=== PATIENT | male | born 1950 | race Caucasian/White ===

== ENCOUNTER 2019-06-27 05:15 | Inpatient (IN) | payer OTHER ==
[2019-06-27 05:22] VITALS: BMI 18.2
--- NOTE | 2019-06-27 05:40 | PDOC ---
Attending Attestation - Resident Resident Name: Tom Loredo - ED Attending Attestation I have performed the following: I have examined & evaluated the patient, The case was reviewed & discussed with the resident, I agree w/resident's findings & plan - HPI HPI: 06/27/19 06:19 see resident hpi - Physicial Exam PE: 06/27/19 06:19 agree with resident exam - Medical Decision Making 06/27/19 06:19 68-year-old male who does not pursue outpatient primary medical care with left- sided chest pain after eating Chest x-ray, EKG, labs We will plan to admit to medical service for at minimum telemetry observation
--- NOTE | 2019-06-27 05:44 | PDOC ---
History of Present Illness - General Chief Complaint: Chest Pain Stated Complaint: CHEST PAIN Time Seen by Provider: 06/27/19 05:24 - History of Present Illness Initial Comments: 06/27/19 05:42 68 yo M who does not see doctors, p/w chest pain. Patient reports that he was at a restaurant eating this morning when he experienced L sided chest pain, associated with SOB and nausea w/o vomiting. Someone at the restaurant called the ambulance for him. Patient says that he has had this pain intermittently for weeks. Reports that the pain is not currently there. Reports that he drinks approximately 3 beers daily, but "I drink more in the summer months". Further states "I'm not an alcoholic, I can stop anytime I want ". About 1ppd smoker since 15 years old. States that in the ambulance, he saw "beautiful children, they were so beautiful ". Currently complains that his back hurts and his legs are tingling. Past History - Past Medical History Allergies/Adverse Reactions: Allergies Allergy/AdvReac Type Severity Reaction Status Date / Time No Known Allergies Allergy Verified 06/27/19 05:20 COPD: No HTN: No (hypotension) - Psycho Social/Smoking Cessation Hx Smoking History: Unknown if ever smoked Review of Systems - Review of Systems Comments:: 06/27/19 06:15 GENERAL/CONSTITUTIONAL: No fever or chills. No weakness. HEAD, EYES, EARS, NOSE AND THROAT: No change in vision. No ear pain or discharge. No sore throat. CARDIOVASCULAR: Chest pain w/ shortness of breath, resolved. RESPIRATORY: Cough. No wheezing, or hemoptysis. GASTROINTESTINAL: No nausea, vomiting, diarrhea or constipation. GENITOURINARY: No dysuria, frequency, or change in urination. MUSCULOSKELETAL: No joint or muscle swelling or pain. No neck or back pain. SKIN: No rash NEUROLOGIC: No headache, vertigo, loss of consciousness, or change in strength/ sensation. ENDOCRINE: No increased thirst. No abnormal weight change. HEMATOLOGIC/LYMPHATIC: No anemia, easy bleeding, or history of blood clots. ALLERGIC/IMMUNOLOGIC: No hives or skin allergy *Physical Exam - Vital Signs Last Vital Signs Temp Pulse Resp BP Pulse Ox 98.5 F 81 94 H 101/62 99 06/27/19 05:20 06/27/19 05:20 06/27/19 05:20 06/27/19 05:20 06/27/19 05:20 - Physical Exam 06/27/19 06:14 Gen: unkempt, malodorous, undernourished, appears clinically intoxicated Neuro: AAOX4, CN II-XII intact, FTN intact, EOMI, PERRLA, 5/5 strength, SILT HEENT: atraumatic, normocephalic, dry mucous membranes Neck: trachea midline, supple CV: regular rate, regular rhythm, no murmurs, rubs, or gallops Pulm: CTA b/l, no wheezing Abd: soft, non-distended, non-tender MSK: full ROM, intact pulses Extr: no edema, no deformities Skin: warm, dry ED Treatment Course - LABORATORY CBC & Chemistry Diagram: 06/27/19 05:45 06/27/19 05:45 - RADIOLOGY Radiology Studies Ordered: Category Date Time Status CXRPORT [CHEST X-RAY PORTABLE*] [RAD] Stat Radiology 06/27/19 05:36 Ordered Medical Decision Making - Medical Decision Making 06/27/19 05:41 68 yo M who does not see doctors, drinks 3 beers daily, smoker, p/w CP. - CBC, CMP - EKG, trop - CXR - u tox, UA/UC - reassess PE low risk considering not tachycardic, not hypoxemic, no SOB. 06/27/19 06:30 EKG normal sinus at 91 bpm, left anterior fascicular block. Do not have old EKG , but concern for ischemic change. 06/27/19 07:09 Patient signed out to Dr. ADAME. Discharge - Discharge Information Problems reviewed: Yes Clinical Impression/Diagnosis: Failure to thrive, COPD suggested by initial evaluation - Follow up/Referral - Patient Discharge Instructions - Post Discharge Activity
[2019-06-27 06:36] LABS: EPI CELLS 0.3 /HPF (0-5/HPF); HYALINE CASTS 1 /lpf (0-8); PH,URINE 5.5 (5.0-8.0); URINE APPEARANCE CLEAR; URINE BILIRUBIN NEGATIVE (NEGATIVE); URINE COLOR YELLOW; URINE GLUCOSE (UA) 2+ (NEGATIVE); URINE KETONE NEGATIVE (NEGATIVE); URINE LEUK ESTERASE NEGATIVE (NEGATIVE); URINE NITRITE NEGATIVE (NEGATIVE); URINE PROTEIN NEGATIVE (NEGATIVE); URINE RBC 1 /hpf (0-4); URINE UROBILINOGEN 0.2 mg/dL (0.2-1.0); URINE WBC 0 /hpf (0-5)
[2019-06-27 06:37] LABS: COCAINE, UR NEGATIVE ng/ml (CUTOFF=300); METHADONE, UR NEGATIVE ng/ml (CUTOFF=300); OPIATES, URI NEGATIVE ng/ml (CUTOFF=300); PHENCYCLIDINE,URINE NEGATIVE ng/ml (CUTOFF=25); URINE AMPHETAMINES NEGATIVE ng/ml (CUTOFF=500); URINE BARBITURATES NEGATIVE ng/ml (CUTOFF=200); URINE BENZODIAZEPINES NEGATIVE ng/ml (CUTOFF=200)
[2019-06-27 06:50] LABS: BASO % 0.9 % (0-2.0); EOS % 2.4 % (0-4.5); HEMATOCRIT 35.2 % (35.4-49); HEMOGLOBIN 11.9 GM/dL (11.7-16.9); LYMPH % 14.6 % (8-40); MCH 31.8 pg (25.7-33.7); MCHC 33.9 g/dl (32.0-35.9); MEAN CELL VOLUME 93.7 fl (80-96); MEAN PLT VOLUME 7.8 fl (7.5-11.1); MONO % 6.8 % (3.8-10.2); NEUT % 75.3 % (42.8-82.8); PLATELET COUNT 253 K/MM3 (134-434); RBC 3.76 M/mm3 (4.00-5.60); RDW 13.1 % (11.9-15.9); WHITE BLOOD COUNT 8.5 K/mm3 (4.0-10.0)
[2019-06-27 07:06] LABS: ALBUMIN 3.1 g/dl (3.4-5.0); BILIRUBIN,TOTAL 0.2 mg/dL (0.2-1); BLOOD UREA NITROGEN 12.4 mg/dL (7-18); CALCIUM 8.5 mg/dL (8.5-10.1); CREATININE 0.6 mg/dL (0.55-1.3); POTASSIUM 3.8 mmol/L (3.5-5.1); TOT PROT 7.3 g/dl (6.4-8.2)
--- NOTE | 2019-06-27 07:16 | PDOC ---
*Physical Exam - Vital Signs Last Vital Signs Temp Pulse Resp BP Pulse Ox 98.5 F 81 94 H 101/62 99 06/27/19 05:20 06/27/19 05:20 06/27/19 05:20 06/27/19 05:20 06/27/19 05:20 - Physical Exam General Appearance: Yes: Nourished, Appropriately Dressed, Disheveled, Other ( strong scent of tobacco). No: Alcohol on Breath HEENT: positive: EOMI, JANES, Normal Voice, Symmetrical. negative: Scleral Icterus (R), Scleral Icterus (L) Neck: positive: Supple. negative: Tender, Lymphadenopathy (R), Lymphadenopathy (L) Respiratory/Chest: positive: Lungs Clear, Normal Breath Sounds. negative: Chest Tender, Respiratory Distress, Accessory Muscle Use, Crackles, Rales, Rhonchi, Stridor, Wheezing Cardiovascular: positive: Regular Rhythm, Regular Rate Gastrointestinal/Abdominal: positive: Normal Bowel Sounds, Flat, Soft. negative : Tender, Organomegaly, Pulsatile Mass, Guarding, Rebound, Hernia Musculoskeletal: positive: Normal Inspection. negative: CVA Tenderness Extremity: positive: Normal Capillary Refill, Normal Inspection, Normal Range of Motion, Tender (tender to LT, bilateral LE feet to knees, no evidence of swelling or pedal edema) Integumentary: positive: Normal Color, Dry, Warm Neurologic: positive: Fully Oriented (patient provides correct name, , location, and current President. Denies AV hallucinations, no evidence of improper logic or speech patterns), Alert, Normal Mood/Affect, Normal Response ED Treatment Course - LABORATORY CBC & Chemistry Diagram: 06/27/19 05:45 06/27/19 05:45 - ADDITIONAL ORDERS Additional order review: Laboratory Results 06/27/19 06/27/19 06/27/19 06:10 06:10 05:45 Sodium Potassium Chloride Carbon Dioxide Anion Gap BUN Creatinine Est GFR (CKD-EPI)AfAm Est GFR (CKD-EPI)NonAf Random Glucose Calcium Total Bilirubin AST ALT Alkaline Phosphatase Creatine Kinase 113 Troponin I < 0.02 Total Protein Albumin Urine Color Yellow Urine Appearance Clear Urine pH 5.5 Ur Specific [place] 1.009 L Urine Protein Negative Urine Glucose (UA) 2+ H Urine Ketones Negative Urine Blood Trace Urine Nitrite Negative Urine Bilirubin Negative Urine Urobilinogen 0.2 Ur Leukocyte Esterase Negative Urine WBC (Auto) 0 Urine RBC (Auto) 1 Urine Casts (Auto) 1 U Epithel Cells (Auto) 0.3 Urine Bacteria (Auto) 1.0 Opiates Screen Negative Methadone Screen Negative Barbiturate Screen Negative Phencyclidine Screen Negative Ur Amphetamines Screen Negative MDMA (Ecstasy) Screen Negative Benzodiazepines Screen Negative Cocaine Screen Negative U Marijuana (THC) Screen Negative 06/27/19 05:45 Sodium 136 Potassium 3.8 Chloride 103 Carbon Dioxide 25 Anion Gap 8 BUN 12.4 Creatinine 0.6 Est GFR (CKD-EPI)AfAm 118.90 Est GFR (CKD-EPI)NonAf 102.59 Random Glucose 152 H Calcium 8.5 Total Bilirubin 0.2 AST 15 ALT 17 Alkaline Phosphatase 84 Creatine Kinase Troponin I Total Protein 7.3 Albumin 3.1 L Urine Color Urine Appearance Urine pH Ur Specific [place] Urine Protein Urine Glucose (UA) Urine Ketones Urine Blood Urine Nitrite Urine Bilirubin Urine Urobilinogen Ur Leukocyte Esterase Urine WBC (Auto) Urine RBC (Auto) Urine Casts (Auto) U Epithel Cells (Auto) Urine Bacteria (Auto) Opiates Screen Methadone Screen Barbiturate Screen Phencyclidine Screen Ur Amphetamines Screen MDMA (Ecstasy) Screen Benzodiazepines Screen Cocaine Screen U Marijuana (THC) Screen 06/27/19 05:45 RBC 3.76 L MCV 93.7 MCHC 33.9 RDW 13.1 MPV 7.8 Neutrophils % 75.3 Lymphocytes % 14.6 Monocytes % 6.8 Eosinophils % 2.4 Basophils % 0.9 Medical Decision Making - Medical Decision Making 06/27/19 07:15 Signed out to me by Dr. Loredo. 68M here with chest pain with SOB, N/V while eating at restaurant. Has had intermittent pain for weeks. Not currently in pain. 1ppd smoker, daily beer drinker. Says he is "seeing beautiful children" in ambulance. Has back pain with leg tingling. [] labs [] UTOX [] BAL [] dispo 06/27/19 08:53 Patient re-assessed, appears disheveled but is fully oriented and does not want to answer questions about his symptoms. Says he has chest pain and pain in both of his legs. Labs notable for: - BAL 40 CXR shows consolidations in upper lobes consistent with PNA vs. TB vs. mass. No obvious symptoms for any of these other than nonproductive cough and known smoking history with poor prior medical follow-up, afebrile. Ordering CT chest noncon for further evaluation, as well as CT head for evaluation of reported AMS with EMS. 06/27/19 10:[address] shows severe COPD with consolidations in the right upper and middle lobes concerning for TB vs. infiltrate. Patient denies risk factors for TB, says he lives alone in a house on [facility] and does all chores by himself, no sick contacts, denies weight loss, denies incarceration or close contact with large number of other people, denies recent travel out of [facility]. However, patient is an unreliable historian despite being A/O x4, not intoxicated and BAL 40. Patient refusing to answer further questioning at this time, but is concerned about a possible PNA when results discussed with him. Moderate suspicion of TB despite lack of symptoms given patient's unkempt appearance, unclear history, and lack of prior medical care. CT head shows no acute pathology. Ordering quantiferon and sputum cultures. Plan to admit for PNA vs. TB. 06/27/19 12:13 Cased discussed with REVENUE CYCLE CONSULTANT Siri Figueroa with admitting team, good for admission to Med Surg under Dr. Hameed. Discharge - Discharge Information Problems reviewed: Yes Clinical Impression/Diagnosis: COPD suggested by initial evaluation Failure to thrive Qualifiers: Failure to thrive age range: in adult Qualified Code(s): R62.7 - Adult failure to thrive Condition: Stable Disposition: ELOPED - Follow up/Referral - Patient Discharge Instructions - Post Discharge Activity
--- NOTE | 2019-06-27 10:44 | EKG ---
Test Reason : Blood Pressure : / mmHG Vent. Rate : 091 BPM Atrial Rate : 091 BPM P-R Int : 120 ms QRS Dur : 100 ms QT Int : 352 ms P-R-T Axes : 065 -74 063 degrees QTc Int : 432 ms NORMAL SINUS RHYTHM LEFT ANTERIOR FASCICULAR BLOCK ABNORMAL ECG NO PREVIOUS ECGS AVAILABLE Confirmed by WINSOME ANN MD ([id number]) on 06/27/2019 10:44:19 AM Referred By: Confirmed By:WINSOME ANN MD
--- NOTE | 2019-06-27 11:49 | HP ---
Admitting History and Physical - Primary Care Physician PCP: none - Admission Chief Complaint: abdominal pain x 1 day since eating at [employer] History of Present Illness: 68 y/o male who denies any PMH or recent hospitalizations. Poor historian giving conflicting history to ED provider. States he ate a cheeseburger at [employer] yesterday and shorty after developed epigastric pain and vomiting. Denies hemetemesis or nausea. Denies any sick contacts, fever, chills, cough, malaise however report cough and recent visit to ED to the ED provider. States he lives alone in apartment in [place], unemployed and independent of ADLs. Denies any ETOH, illicit drug use or smoking however smells like cigarette smoke History Source: Patient Limitations to Obtaining History: Poor Historian, Uncooperative - Smoking History Smoking history: Current every day smoker (1 ppd as per report to ED provider , denies to this staff writer) Aproximately how many cigarettes per day: 20 - Alcohol/Substance Use Hx Alcohol Use: Yes (denies to the staff writer) Number of Drinks Daily: 3 Date of Last Use: 06/26/19 - Social History Usual Living Arrangement: Yes: Alone Do you think of yourself as: Straight/Heterosexual ADL: Independent Occupation: unemployed History of Recent Travel: No Home Medications - Allergies Allergies/Adverse Reactions: Allergies Allergy/AdvReac Type Severity Reaction Status Date / Time No Known Allergies Allergy Verified 06/27/19 05:20 Family Medical History Family History: Denies Review of Systems - Review of Systems Constitutional: reports: No Symptoms Eyes: reports: No Symptoms HENT: reports: No Symptoms Neck: reports: No Symptoms Cardiovascular: reports: No Symptoms Respiratory: reports: No Symptoms Gastrointestinal: reports: Abdominal Pain Genitourinary: reports: No Symptoms Breasts: reports: No Symptoms Reported Musculoskeletal: reports: No Symptoms Integumentary: reports: No Symptoms Neurological: reports: No Symptoms Endocrine: reports: No Symptoms Hematology/Lymphatic: reports: No Symptoms Psychiatric: reports: No Symptoms Physical Examination Vital Signs: Vital Signs Temperature 97.7 F 06/27/19 07:15 Pulse Rate 85 06/27/19 07:15 Respiratory Rate 17 06/27/19 07:15 Blood Pressure 103/59 L 06/27/19 07:15 O2 Sat by Pulse Oximetry (%) 97 06/27/19 07:15 Constitutional: Yes: Poor Hygeine, Thin Eyes: Yes: WNL, Conjunctiva Clear, EOM Intact HENT: Yes: WNL, Atraumatic, Normocephalic Neck: Yes: WNL, Supple, Trachea Midline Cardiovascular: Yes: WNL, Regular Rate and Rhythm Respiratory: Yes: Regular, CTA Bilaterally, Diminished (at bases) Gastrointestinal: Yes: WNL, Normal Bowel Sounds, Soft ...Rectal Exam: Yes: Deferred Renal/: Yes: WNL Breast(s): Yes: WNL Musculoskeletal: Yes: WNL Extremities: Yes: WNL Edema: No Peripheral Pulses WNL: Yes Peripheral Pulses: Left Radial: 2+, Right Radial: 2+, Left Doralis Pedis: 2+, Right Dorsalis Pedis: 2+, Left Femoral: 2+, Right Femoral: 2+ Integumentary: Yes: WNL Neurological: Yes: WNL, Alert, Oriented ...Motor Strength: WNL Psychiatric: Yes: WNL, Alert, Oriented Labs: CBC, BMP 06/27/19 05:45 06/27/19 05:45 Imaging - Results Cat Scan: Report Reviewed (HCt no acute pathology Chest CT:moderately severe CPOD with RUL/RML consolidation) Problem List - Problems (1) Abdominal pain Assessment/Plan: denies any abdominal pain now antiemetics as needed if abdominal pain return will further investigate with CT Code(s): R10.9 - UNSPECIFIED ABDOMINAL PAIN (2) Prophylactic measure Assessment/Plan: FEN regular diet box toe cutter consult requested no additional IVF needed monitor electrolytes DVT heparin sq Dispo admit to med surg full code discharge planning Code(s): Z29.9 - ENCOUNTER FOR PROPHYLACTIC MEASURES, UNSPECIFIED (3) PNA (pneumonia) Assessment/Plan: RUL/RML consolidation SPO2 97% on RA start abx for questionble PNA duo nebs prn pulmonary consultation requested Code(s): J18.9 - PNEUMONIA, UNSPECIFIED ORGANISM (4) COPD suggested by initial evaluation Assessment/Plan: COPD changes seen on CT Code(s): J44.9 - CHRONIC OBSTRUCTIVE PULMONARY DISEASE, UNSPECIFIED (5) Moderate protein-calorie malnutrition Assessment/Plan: Clinical indicators: BMI 18, albumin 2.9, sunken cheeks with prominent bones, muscle wasting add snacks to meals start MVI box toe cutter consult requested Code(s): E44.0 - MODERATE PROTEIN-CALORIE MALNUTRITION (6) Tuberculosis Assessment/Plan: collect sputum samples for AFB x 3 quantifieron pending maintain isolation until proven TB negative Code(s): A15.9 - RESPIRATORY TUBERCULOSIS UNSPECIFIED Visit type - Emergency Visit Emergency Visit: Yes ED Registration Date: 06/27/19 Care time: The patient presented to the Emergency Department on the above date and was hospitalized for further evaluation of their emergent condition. - New Patient This patient is new to me today: Yes Date on this admission: 06/27/19 - Critical Care Critical Care patient: No
[2019-06-27] MEDS ORDERED: ACETAMINOPHEN 325 MG TABLET (FP) PO PRN (11:54)
[2019-06-27] MEDS ORDERED: ALBUTEROL SO4 2.5/IPRATROPIUM 0.5 INH SOL 3 ML VIAL.NEB. NEB ONE ×3 (12:08→20:14)
[2019-06-27] MEDS ORDERED: ACETAMINOPHEN 325 MG TABLET (FP) ONE (12:09)
[2019-06-27 12:10] VITALS: TEMP 98
[2019-06-27] MEDS: ALBUTEROL SO4 2.5/IPRATROPIUM 0.5 INH SOL 3 ML VIAL.NEB. NEB SCH ×3 (12:13→20:28)
[2019-06-27] MEDS ORDERED: AZITHROMYCIN IVPB 500 MG/250 ML BAG IVPB SCH (12:30)
[2019-06-27] MEDS ORDERED: AZITHROMYCIN IVPB 500 MG/250 ML BAG IVPB ONE (12:38)
[2019-06-27] MEDS ORDERED: CEFTRIAXONE 1 GM/50 ML BAG ONE (12:39)
[2019-06-27] MEDS ORDERED: CEFTRIAXONE 1 GM in DEXTROSE 5%-WATER - 50 ML IVPB SCH (12:45)
--- NOTE | 2019-06-27 14:31 | CON.PULM ---
Consult Consult Specialty:: PULMONARY Referred by:: CHAN Borges Reason for Consultation:: pneumonia - History of Present Illness Chief Complaint: chest pain History of Present Illness: 68yo male who denies past medical history who presents to the ED for abdominal pain per chart but tells me chest pain. Found to have a RUL infiltrate on CXR and CT chest. He denies any fevers, chills or sweats but reports a 60lb weight loss over the past 10 years. +cough with white sputum. Denies history of TB, states he has been tested for TB and HIV both of which were negative but unable to tell me when. Denies smoking. Born in [place]. - History Source History Provided By: Patient, Medical Record Limitations to Obtaining History: Poor Historian - Alcohol/Substance Use Hx Alcohol Use: Yes (denies to the editorial writer) Number of Drinks Daily: 3 Date of Last Use: 06/26/19 - Smoking History Smoking history: Current every day smoker (1 ppd as per report to ED provider , denies to this editorial writer) Aproximately how many cigarettes per day: 20 - Social History ADL: Independent Occupation: unemployed History of Recent Travel: No Home Medications - Allergies Allergies/Adverse Reactions: Allergies Allergy/AdvReac Type Severity Reaction Status Date / Time No Known Allergies Allergy Verified 06/27/19 05:20 Review of Systems - Review of Systems Constitutional: reports: Unintentional Wgt. Loss. denies: Chills, Fever Eyes: denies: Recent Change in Vision HENT: denies: Nasal Congestion, Throat Pain Neck: denies: Stiffness, Tenderness Cardiovascular: reports: Chest Pain. denies: Palpitations, Shortness of Breath Respiratory: reports: Cough. denies: Hemoptysis, Wheezing Gastrointestinal: denies: Abdominal Pain, Nausea, Vomiting Genitourinary: denies: Dysuria, Hematuria Neurological: denies: Dizziness, Headache Endocrine: denies: Unexplained Weight Loss Physical Exam Vital Sings: Vital Signs Temperature 98.0 F 06/27/19 12:04 Pulse Rate 92 H 06/27/19 12:04 Respiratory Rate 16 06/27/19 12:04 Blood Pressure 104/58 L 06/27/19 12:04 O2 Sat by Pulse Oximetry (%) 97 06/27/19 07:15 Constitutional: Yes: Cachectic Eyes: Yes: Conjunctiva Clear, EOM Intact HENT: Yes: Atraumatic, Normocephalic Neck: Yes: Supple, Trachea Midline Cardiovascular: Yes: Regular Rate and Rhythm Respiratory: Yes: Diminished (distant breath sounds) ...Clubbing: No Gastrointestinal: Yes: Normal Bowel Sounds, Soft. No: Tenderness Edema: No Neurological: Yes: Alert, Oriented Labs: CBC, BMP 06/27/19 05:45 06/27/19 05:45 Imaging - Results Chest X-ray: Report Reviewed, Image Reviewed Cat Scan: Report Reviewed, Image Reviewed (RUL consolidation, RML infiltrates) Assessment/Plan Pneumonia Failure to Thrive - collect sputum samples for AFB x 3 - quantifieron - agree with empiric antibiotics but hold off on macrolides for now - may need bronchoscopy/BAL if sputum studies unrevealing - DVT prophylaxis Thank you for this consult Carlos Hermosillo MD
[2019-06-28 03:54] VITALS: BP 123/63; PULSE 92
[2019-06-28] MEDS ORDERED: ALBUTEROL SO4 2.5/IPRATROPIUM 0.5 INH SOL 3 ML VIAL.NEB. NEB ONE (08:57)
[2019-06-28] MEDS ORDERED: MULTIVITAMINS (DAILY MVI) TABLET (FP) PO SCH (10:00)
== END 2019-06-28 06:00 | disposition left against medical advice (07) | DRG 194 ==
LOC: JER 05:15 → JERBED 11:45
PROVIDERS: ADMIT Hospitalist; ATTEND Nurse Practitioner Family
DX: J18.9 Pneumonia, unspecified organism (principal); Z68.1 Body mass index [BMI] 19.9 or less, adult; E44.0 Moderate protein-calorie malnutrition; A15.9 Respiratory tuberculosis unspecified; R64 Cachexia; R62.7 Adult failure to thrive; F17.210 Nicotine dependence, cigarettes, uncomplicated; J44.9 Chronic obstructive pulmonary disease, unspecified
CPT/HCPCS: 36415; 70450-TC; 71045-TC-FY; 71250-TC; 80053; 80307; 81003; 82550; 84484; 85025; 87070; 87086; 87205; 93005; 93010; 99285-25